=== PATIENT | female | born 1975 | race African-American/Black ===

== ENCOUNTER 2019-09-07 23:52 | Emergency (ER) | payer SELFPAY ==
[2019-09-08] MEDS ORDERED: HYDROCODONE/ACETAMINOPHEN 5-325 MG TABLET PO ONE (00:46)
[2019-09-08] MEDS ORDERED: SULFAMETHOXAZOLE/TRIMETHOPRIM 800-160 MG TABLET PO ONE ×2 (00:46→05:10)
--- NOTE | 2019-09-08 00:48 | ER Document Report ---
ED Medical Screen (RME) - General Chief Complaint: Boil Stated Complaint: REPORTS IN BOIL IN ARMPIT Notes: Patient is a 43-year-old -[place] female with no significant past medical history presents the emergency department the chief complaint of left "boil" in the armpit. She states she is never had anything like this before. States her family are in the medical field and advised she come for incision and drainage. She denies any drainage at home. She has been using warm compress without any improvement. She is tried an [id number] "drawing salve". None of which has given her any improvement or relief of the discomfort. She denies any fever, chills or night sweats. There is an obvious area of induration under the left armpit with a centralized questionable fluctuance. Will have patient seen in emergency department room for possible bedside ultrasound to confirm fluid collection versus isolated induration to determine need for I&D or not as our capabilities are limited in triage. I have treated and performed a rapid initial assessment of this patient. A comprehensive ED assessment and evaluation of the patient, analysis of test results and completion of medical decision making process will be conducted by additional ED providers. PHYSICAL EXAMINATION: GENERAL: Well-appearing, well-nourished and in no acute distress. A&Ox4. Answers questions appropriately. Physical Exam - Vital signs Vitals: Temp Pulse Resp BP Pulse Ox 99.1 F 91 20 150/97 H 100 09/08/19 00:12 09/08/19 00:12 09/08/19 00:12 09/08/19 00:12 09/08/19 00:12 Course - Vital Signs Vital signs: Temp Pulse Resp BP Pulse Ox 99.1 F 91 20 150/97 H 100 09/08/19 00:12 09/08/19 00:12 09/08/19 00:12 09/08/19 00:12 09/08/19 00:12
[2019-09-08] MEDS ORDERED: LIDOCAINE 1%/EPINEPHRINE INJ 20 ML VIAL INJ ONE (04:10)
[2019-09-08] MEDS ORDERED: OXYCODONE-ACETAMINOPHEN 5-325 MG TABLET PO ONE (04:10)
[2019-09-08] MEDS ORDERED: PROMETHAZINE HCL 25 MG TABLET PO ONE (04:10)
--- NOTE | 2019-09-08 04:16 | ER Document Report ---
ED Skin Rash/Insect Bite/Abscs - General Chief Complaint: Abscess Stated Complaint: REPORTS IN BOIL IN ARMPIT Time Seen by Provider: 09/08/19 04:05 Notes: Patient is a 43-year-old female that comes emergency department for chief complaint of a swollen, tender, red area in the left armpit. She states this started several days ago, she states she has been using warm compresses, she states that her she had her daughter used tweezers and pull out small hairs that seemed embedded in the skin, she states this did help and the swelling went slightly down but still has not resolved. She denies fever/chills, nausea/vomiting. She denies any daily medications. She denies history of the same. She denies any other complaints. - Related Data Allergies/Adverse Reactions: No Known Allergies Allergy (Unverified 09/08/19 04:24) Home Medications: albuterol inhaler Past Medical History - General Information source: Patient - Social History Smoking Status: Former Smoker Frequency of alcohol use: None Drug Abuse: None Lives with: Family Family History: Reviewed & Not Pertinent Patient has homicidal ideation: No - Medical History Medical History: Negative - Immunizations Immunizations up to date: Yes Hx Diphtheria, Pertussis, Tetanus Vaccination: Yes Review of Systems - Review of Systems Constitutional: No symptoms reported EENT: No symptoms reported Cardiovascular: No symptoms reported Respiratory: No symptoms reported Gastrointestinal: No symptoms reported Genitourinary: No symptoms reported Female Genitourinary: No symptoms reported Musculoskeletal: No symptoms reported Skin: See HPI Hematologic/Lymphatic: No symptoms reported Neurological/Psychological: No symptoms reported Physical Exam - Vital signs Vitals: Temp Pulse Resp BP Pulse Ox 99.1 F 91 20 150/97 H 100 09/08/19 00:12 09/08/19 00:12 09/08/19 00:12 09/08/19 00:12 09/08/19 00:12 - Notes Notes: GENERAL: Alert, interacts well. Patient appears mildly uncomfortable and is holding her left arm away from her body. HEAD: Normocephalic, atraumatic. EYES: Pupils equal, round, and reactive to light. Extraocular movements intact. ENT: Oral mucosa moist, tongue midline. Oropharynx unremarkable. Airway patent. NECK: Full range of motion. Supple. Trachea midline. No lymphadenopathy. LUNGS: Clear to auscultation bilaterally, no wheezes, rales, or rhonchi. No respiratory distress. Non-tender chest wall. HEART: Regular rate and rhythm. No murmur ABDOMEN: Soft, non-tender. Non-distended. EXTREMITIES: Moves all 4 extremities spontaneously. No edema, normal radial and dorsalis pedis pulses bilaterally. No cyanosis. BACK: no cervical, thoracic, lumbar midline tenderness. No saddle anesthesia, normal distal neurovascular exam. NEUROLOGICAL: Alert and oriented x3. Normal speech. Cranial nerves II through XII grossly intact. Strength 5/5 in all extremities. PSYCH: Normal affect, normal mood. SKIN: There is an obvious indurated abscess in the left mid axillary area, the center appears fluctuant, there is erythema over the area but no noted surrounding or spreading cellulitis. No nearby lymphadenopathy noted. Otherwise unremarkable skin exam. Course - Re-evaluation Re-evalutation: Rapid bedside ultrasound was done, confirms an abscess pocket in the left axillary region. The area was cleaned, drained, dressed. Discussed care, expectations, follow-up, return precautions. Patient states understanding and agreement with plan. - Vital Signs Vital signs: Temp Pulse Resp BP Pulse Ox 97.4 F 71 15 147/107 H 99 09/08/19 05:22 09/08/19 05:22 09/08/19 05:22 09/08/19 05:22 09/08/19 05:22 Procedures - Incision and Drainage Left axillary area Type: Single Anesthetic type: 1% Lidocaine w/epi mL's of anesthetic: 8 Blade size: 11 I&D procedure: Shurclens applied, Sterile dressing applied Incision Method: Incision made by scalpel Amount/type of drainage: About 4 cc of purulent drainage Discharge - Discharge Clinical Impression: Abscess Condition: Stable Disposition: HOME, SELF-CARE Additional Instructions: The abscess has been drained, keep the area clean, clean with soap and water, apply absorbent dressing over the area. Take the antibiotic as prescribed. Take the pain medication if needed, you may need an [id number] stool softener to avoid constipation with this. Follow-up with primary care. Return if you worsen including spreading redness, severe worsening pain or swelling, fever, or any other concerning symptoms. Prescriptions: Sulfamethoxazole/Trimethoprim [Bactrim Ds Tablet] 1 each PO BID #14 tablet Hydrocodone/Acetaminophen [[place] 5-325 mg Tablet] 1 - 2 tab PO Q6H PRN #8 tablet PRN Reason: Forms: Return to Work
[2019-09-08] MEDS ORDERED: HYDROCODONE/ACETAMINOPHEN 5-325 MG (6 TAB/ER DISP) PO PRN (05:10)
[2019-09-08 05:28] VITALS: BP 147/107
== END 2019-09-08 05:39 | disposition home or self-care (01) ==
LOC: ER 23:52
DX: L02.412 Cutaneous abscess of left axilla (principal)
CPT/HCPCS: 99283; 10060; J3490

== ENCOUNTER 2020-02-21 15:05 | Emergency (ER) | payer SELFPAY ==
[2020-02-21] MEDS ORDERED: NORMAL SALINE 1000 ML 1,000 ML IV ONE (16:03)
--- NOTE | 2020-02-21 16:08 | ER Document Report ---
ED Medical Screen (RME) - General Chief Complaint: Vomiting Stated Complaint: VOMITING Time Seen by Provider: 02/21/20 16:01 Mode of Arrival: Ambulatory Information source: Patient Notes: 44-year-old female presented to ED for complaint of nausea and vomiting x2 today. She does have left flank pain. She does have a history of gallstones and pancreatitis. She states she does not drink alcohol very often at all when she had pancreatitis it was due to the gallstones. She states she is not had a kidney stone before but she does have severe left flank pain that does come around to the abdomen. Will get blood urine and CT abdomen pelvis and she will be seen by another provider. We will give a shot of Toradol IM for her pain at this time and will give a Percocet with Zofran ODT as well. Recheck blood pressure at this time it is 205/125 on the right arm. Patient was not moving at all when this was rechecked. I have greeted and performed a rapid initial assessment of this patient. A comprehensive ED assessment and evaluation of the patient, analysis of test results and completion of medical decision making process will be conducted by an additional ED providers. - Related Data Allergies/Adverse Reactions: No Known Allergies Allergy (Unverified 09/08/19 04:24) Past Medical History - Immunizations Immunizations up to date: Yes Hx Diphtheria, Pertussis, Tetanus Vaccination: Yes Physical Exam - Vital signs Vitals: Temp Pulse Resp BP Pulse Ox 98.0 F 76 16 211/113 H 100 02/21/20 15:08 02/21/20 15:08 02/21/20 15:08 02/21/20 15:08 02/21/20 15:08 Course - Vital Signs Vital signs: Temp Pulse Resp BP Pulse Ox 98.0 F 76 16 211/113 H 100 02/21/20 15:08 02/21/20 15:08 02/21/20 15:08 02/21/20 15:08 02/21/20 15:08
[2020-02-21 16:50] LABS: APPEARANCE,URINE CLEAR; BILIRUBIN,URINE NEGATIVE (NEGATIVE); GLUCOSE, URINE NEGATIVE (NEGATIVE); KETONES,URINE TRACE mg/dL (NEGATIVE); LEUKOCYTE ESTERASE,URINE NEGATIVE (NEGATIVE); NITRITE,URINE NEGATIVE (NEGATIVE); PROTEIN,URINE 30 mg/dL (NEGATIVE); URINE SPECIFIC GRAVITY 1.025
[2020-02-21 16:51] LABS: COLOR,URINE DARK YELLOW
[2020-02-21] MEDS ORDERED: OXYCODONE-ACETAMINOPHEN 5-325 MG TABLET PO ONE (17:46)
--- NOTE | 2020-02-21 17:54 | RADIOLOGY REPORT (SQ) ---
EXAM DESCRIPTION: CT ABD/PELVIS NO ORAL OR IV IMAGES COMPLETED DATE/TIME: 02/21/2020 5:37 pm REASON FOR STUDY: Left flank pain COMPARISON: None. TECHNIQUE: CT scan of the abdomen and pelvis performed without intravenous or oral contrast. Images reviewed with lung, soft tissue, and bone windows. Reconstructed coronal and sagittal MPR images revi ewed. All images stored on PACS. All CT scanners at this facility use dose modulation, iterative reconstruction, and/or weight based d osing when appropriate to reduce radiation dose to as low as reasonably achievable (ALARA). [facility]: Dose Right [facility]: CareDose [facility]: Dose Right [facility]: Teradose 4D [facility]: Smart FreshT RADIATION DOSE: CT Rad equipment meets quality standard of care and radiation dose reduction techniq ues were employed. CTDIvol: 12.3 mGy. DLP: 602 mGy-cm.mGy. LIMITATIONS: None. FINDINGS: LOWER CHEST: No significant findings. No nodules or infiltrates. NON-CONTRASTED LIVER, SPLEEN, ADRENALS: Evaluation limited by lack of IV contrast. No identified sign ificant masses. PANCREAS: No masses. No peripancreatic inflammatory changes. GALLBLADDER: There are some tiny gallstones. RIGHT KIDNEY AND URETER: No suspicious masses. Assessment limited by lack of IV contrast. No signif icant calcifications. No hydronephrosis or hydroureter. LEFT KIDNEY AND URETER: No suspicious masses. Assessment limited by lack of IV contrast. No signifi cant calcifications. No hydronephrosis or hydroureter. AORTA AND RETROPERITONEUM: No aneurysm. No retroperitoneal masses or adenopathy. BOWEL AND PERITONEAL CAVITY: No obvious masses or inflammatory changes. No free fluid. APPENDIX: Normal. PELVIS, BLADDER, AND ABDOMINAL WALL:No abnormal masses. No free fluid. Bladder normal. BONES: No significant findings. OTHER: No other significant finding. IMPRESSION: NO SIGNIFICANT OR ACUTE PROCESS IN THE ABDOMEN OR PELVIS. COMMENT: Quality ID # [id number]: Final reports with documentation of one or more dose reduction techniques (e.g., Automated exposure control, adjustment of the mA and/or kV according to patient size, use of iterative reconstruction technique) TECHNICAL DOCUMENTATION: JOB ID: [id number] 2010 [employer]- All Rights Reserved Reading location - IP/workstation name: [email or web address]
[2020-02-21] MEDS ORDERED: FENTANYL CITRATE INJ/PF 100 MCG/2 ML AMPUL IV ONE (18:55)
[2020-02-21] MEDS ORDERED: PROMETHAZINE HCL INJ 25 MG/1 ML VIAL IV ONE (18:56)
[2020-02-21] MEDS ORDERED: ENALAPRILAT DIHYDRATE INJ/PF 2.5 MG/2 ML SDV IV ONE (18:56)
[2020-02-21] MEDS ORDERED: LABETALOL HCL INJ 20 MG/4 ML DISP.SYRIN IV ONE (18:57)
--- NOTE | 2020-02-21 18:57 | ER Document Report ---
ED GI/ - General Chief Complaint: Vomiting Stated Complaint: VOMITING Time Seen by Provider: 02/21/20 16:01 Mode of Arrival: Ambulatory Information source: Patient Notes: ED Medical Screen (Julianne Zeng) - General Chief Complaint: Vomiting Stated Complaint: VOMITING Time Seen by Provider: 02/21/20 16:01 Mode of Arrival: Ambulatory Information source: Patient Notes: 44-year-old female presented to ED for complaint of nausea and vomiting x2 today. She does have left flank pain. She does have a history of gallstones and pancreatitis. She states she does not drink alcohol very often at all when she had pancreatitis it was due to the gallstones. She states she is not had a kidney stone before but she does have severe left flank pain that does come around to the abdomen. Will get blood urine and CT abdomen pelvis and she will be seen by another provider. We will give a shot of Toradol IM for her pain at this time and will give a Percocet with Zofran ODT as well. Recheck blood pressure at this time it is 205/125 on the right arm. Patient was not moving at all when this was rechecked. MY NOTES 44-year-old black female arrives with chief complaint of having nausea and vomiting x2 today and 2-3 times yesterday. She complains of left upper quadrant abdominal pain with associated left CVA pain radiating to her left SI. Patient reports in 2002 after the of her daughter she was diagnosed with some pancreatitis and had some jaundice. She admits to one bout of diarrhea. This was on the prior day. She denies any history of PUD or gastritis or family history of any stomach ulcers. Patient denies any trauma or physical abuse at home. No one else in the family is sick. 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 TRAVEL OUTSIDE OF THE [place] IN LAST 30 DAYS: No - Related Data Allergies/Adverse Reactions: No Known Allergies Allergy (Unverified 09/08/19 04:24) Past Medical History - General Information source: Patient - Social History Smoking Status: Current Every Day Smoker Cigarette use (# per day): Yes Chew tobacco use (# tins/day): No Smoking Education Provided: Yes Frequency of alcohol use: None Lives with: Family Family History: Reviewed & Not Pertinent Patient has suicidal ideation: No Patient has homicidal ideation: No - Immunizations Immunizations up to date: Yes Hx Diphtheria, Pertussis, Tetanus Vaccination: Yes Review of Systems - Review of Systems Constitutional: No symptoms reported EENT: No symptoms reported Cardiovascular: No symptoms reported Respiratory: No symptoms reported Gastrointestinal: See HPI, Abdominal pain, Diarrhea, Nausea, Vomiting Genitourinary: No symptoms reported Female Genitourinary: No symptoms reported Musculoskeletal: No symptoms reported Skin: No symptoms reported Hematologic/Lymphatic: No symptoms reported Neurological/Psychological: No symptoms reported Physical Exam - Vital signs Vitals: Temp Pulse Resp BP Pulse Ox 98.0 F 76 16 211/113 H 100 02/21/20 15:08 02/21/20 15:08 02/21/20 15:08 02/21/20 15:08 02/21/20 15:08 Interpretation: Hypertensive - General General appearance: Appears well, Alert - HEENT Head: Normocephalic, Atraumatic Eyes: Normal Pupils: PERRL Sinus: Normal Nasal: Normal Mouth/Lips: Normal Mucous membranes: Normal Pharynx: Normal Neck: Normal - Respiratory Respiratory status: No respiratory distress Chest status: Nontender Breath sounds: Normal Chest palpation: Normal - Cardiovascular Rhythm: Regular Heart sounds: Normal auscultation Murmur: No - Abdominal Inspection: Obese Distension: No distension Bowel sounds: Normal Tenderness: Tender - LUQ on p/p Organomegaly: No organomegaly - Rectal Hemorrhoids: Other - Deferred - Genitourinary Bimanuel exam: Other - Deferred - Back Back: Normal, Nontender - Extremities General upper extremity: Normal inspection, Nontender, Normal color, Normal ROM, Normal temperature General lower extremity: Normal inspection, Nontender, Normal color, Normal ROM, Normal temperature, Normal weight bearing. No: Cora's sign - Neurological Neuro grossly intact: Yes Cognition: Normal Orientation: AAOx4 Tok Coma Scale Eye Opening: Spontaneous Tok Coma Scale Verbal: Oriented Tok Coma Scale Motor: Obeys Commands Tok Coma Scale Total: 15 Speech: Normal Motor strength normal: LUE, RUE, LLE, RLE Sensory: Normal - Psychological Associated symptoms: Normal affect, Normal mood - Skin Skin Temperature: Warm Skin Moisture: Dry Skin Color: Normal Course - Vital Signs Vital signs: Temp Pulse Resp BP Pulse Ox 98.0 F 76 17 171/114 H 100 02/21/20 15:08 02/21/20 15:08 02/21/20 19:53 02/21/20 19:53 02/21/20 19:53 - Laboratory Results Result Diagrams: 02/21/20 19:26 02/21/20 19:26 Laboratory Results Interpreted: 02/21/20 02/21/20 02/21/20 16:27 19:26 19:26 RDW 14.7 H Potassium 3.4 L Total Bilirubin 4.0 H Direct Bilirubin 2.0 H AST 422 H ALT 638 H Alkaline Phosphatase 281 H Total Protein 9.1 H Urine Protein 30 H Urine Ketones TRACE H Urine Blood SMALL H Urine Urobilinogen 4.0 H Critical Laboratory Results Reviewed: Yes Attending or Supervising Physician who Reviewed Labs: [facility] Radiology Results Radiology Results Interpreted: 02/21/20 19:21 Dr. Dennison read the CT Critical Radiology Results Reviewed: No Critical Results Attending or Supervising Physician who Reviewed Radiology: [facility] EKG Interpretation by Sc EKG shows normal: Sinus rhythm Rate: Normal Rhythm: NSR - 56 bpm sinus rhythm with no ST elevation and no ST depression and no T wave elevation and no T wave depression Critical Care Note - Critical Care Note Comments: I informed patient of her negative CT findings and I suspect her symptoms are from norovirus. Discharge - Discharge Clinical Impression: Gastroenteritis due to norovirus, Elevated liver enzymes, Hypokalemia, Hepatitis Hypertension Qualifiers: Hypertension type: unspecified Qualified Code(s): I10 - Essential (primary) hypertension Condition: Stable Disposition: HOME, SELF-CARE Instructions: Antinausea Medication ([facility]) Additional Instructions: Follow-up with personal doctor this week; return to ER as needed; take medicines as directed; encourage fluids; off work as directed; make sure you write down your blood pressure taken on a daily basis on a calendar or other paper that you can present to your personal doctor on a monthly basis. Avoid salt if possible and use Mrs. Flor or other salt substitutes if possible. May use Lite salt a potassium substitute salt. Also your potassium was a little low today make sure you take Lite salt potassium or potassium tablets. Also your liver enzymes are elevated suggesting hepatitis. Prescriptions: Potassium Chloride [K-Tab ER] 20 meq PO DAILY #30 tablet.er Lisinopril/Hydrochlorothiazide [Lisinopril-Hctz 20-25 mg Tab] 1 each PO DAILY 30 Days #30 tablet Forms: Return to Work
--- NOTE | 2020-02-21 19:02 | EKG REPORT ---
SEVERITY:- NORMAL ECG - SINUS RHYTHM : Confirmed by: Roque Franklin MD 21-Feb-2020 19:01:21
[2020-02-21] MEDS ORDERED: HYDROCODONE/ACETAMINOPHEN 5-325 MG (6 TAB/ER DISP) PO PRN (19:04)
[2020-02-21] MEDS ORDERED: ONDANSETRON ODT 4 MG TAB (6 TAB/ER DISP) PO PRN (19:15)
[2020-02-21 19:49] LABS: ABSOLUTE EOSINOPHILS # (AUTO) 0.2 10^3/uL (0.0-0.6); ABSOLUTE LYMPHOCYTES (AUTO) 1.6 10^3/uL (0.5-4.7); ABSOLUTE MONOCYTES (AUTO) 0.4 10^3/uL (0.1-1.4); ABSOLUTE NEUT (AUTO) 2.8 10^3/uL (1.7-8.2); BASOPHILS % (AUTO) 0.5 % (0-2); HEMATOCRIT 40.3 % (36.0-47.0); HEMOGLOBIN 13.5 g/dL (12.0-15.5); LYMPHOCYTES % (AUTO) 32.2 % (13-45); MEAN CORPUSCULAR HEMOGLOBIN 29.1 pg (27.0-33.4); MEAN CORPUSCULAR HGB CONC 33.6 g/dL (32.0-36.0); MEAN CORPUSCULAR VOLUME 87 fl (80-97); MONOCYTES % (AUTO) 7.2 % (3-13); PLATELET COUNT 192 10^3/uL (150-450); RED BLOOD COUNT 4.65 10^6/uL (3.72-5.28); RED CELL DISTRIBUTION WIDTH 14.7 % (11.5-14.0); SEGMENTED NEUTROPHILS % (AUTO) 56.1 % (42-78); TOTAL CELLS COUNTED % (AUTO) 100 %
[2020-02-21] MEDS ORDERED: HYDROCHLOROTHIAZIDE 25 MG TABLET PO ONE (20:08)
[2020-02-21 20:12] LABS: ALBUMIN 4.4 g/dL (3.5-5.0); ALKALINE PHOSPHATASE 281 U/L (38-126); ANION GAP 7 (5-19); ASPARTATE AMINO TRANSFERASE 422 U/L (14-36); BLOOD UREA NITROGEN 10 mg/dL (7-20); CALCIUM 8.9 mg/dL (8.4-10.2); CARBON DIOXIDE 26 mmol/L (22-30); CHLORIDE 105 mmol/L (98-107); GLUCOSE 106 mg/dL (75-110); POTASSIUM 3.4 mmol/L (3.6-5.0); TOTAL PROTEIN 9.1 g/dL (6.3-8.2)
[2020-02-21 22:24] VITALS: BP 162/113
[2020-02-24 14:36] LABS: HEPATITS B SURFACE ANTIGEN Negative (Negative)
[2020-02-24 17:58] LABS: HEPATITIS C VIRUS ANTIBODY <0.1 s/co ratio (0.0-0.9)
== END 2020-02-21 22:20 | disposition home or self-care (01) ==
LOC: ER 15:05
DX: A08.11 Acute gastroenteropathy due to Norwalk agent (principal); R74.8 Abnormal levels of other serum enzymes; E87.6 Hypokalemia; K75.9 Inflammatory liver disease, unspecified; R10.9 Unspecified abdominal pain; R11.2 Nausea with vomiting, unspecified; F17.210 Nicotine dependence, cigarettes, uncomplicated
CPT/HCPCS: 93005; 99285; 96361; 96374; 96375; 36415; 87086; 83690; 85025; 81025; 80053; 81001; 80074; 74176; 93010; J3490 ×2; J3010; J2550; J7030

== ENCOUNTER 2020-03-08 00:33 | Emergency (ER) | payer SELFPAY ==
[2020-03-08] MEDS ORDERED: KETOROLAC TROMETHAMINE INJ/PF 30 MG/1 ML SDV IV ONE (00:48)
[2020-03-08 01:15] LABS: ABSOLUTE BASOPHILS # (AUTO) 0.1 10^3/uL (0.0-0.2); ABSOLUTE EOSINOPHILS # (AUTO) 0.3 10^3/uL (0.0-0.6); ABSOLUTE LYMPHOCYTES (AUTO) 2.3 10^3/uL (0.5-4.7); ABSOLUTE MONOCYTES (AUTO) 0.4 10^3/uL (0.1-1.4); ABSOLUTE NEUT (AUTO) 2.8 10^3/uL (1.7-8.2); BASOPHILS % (AUTO) 0.9 % (0-2); EOSINOPHILS % (AUTO) 4.3 % (0-6); HEMOGLOBIN 13.2 g/dL (12.0-15.5); LYMPHOCYTES % (AUTO) 39.1 % (13-45); MEAN CORPUSCULAR HEMOGLOBIN 28.4 pg (27.0-33.4); MEAN CORPUSCULAR VOLUME 86 fl (80-97); MONOCYTES % (AUTO) 7.5 % (3-13); PLATELET COUNT 208 10^3/uL (150-450); RED BLOOD COUNT 4.65 10^6/uL (3.72-5.28); RED CELL DISTRIBUTION WIDTH 14.8 % (11.5-14.0); SEGMENTED NEUTROPHILS % (AUTO) 48.2 % (42-78); TOTAL CELLS COUNTED % (AUTO) 100 %; WHITE BLOOD COUNT 5.9 10^3/uL (4.0-10.5)
[2020-03-08 01:32] LABS: ALKALINE PHOSPHATASE 101 U/L (38-126); ANION GAP 5 (5-19); ASPARTATE AMINO TRANSFERASE 93 U/L (14-36); BILIRUBIN,DIRECT 0.3 mg/dL (0.0-0.4); BLOOD UREA NITROGEN 16 mg/dL (7-20); CALCIUM 9.4 mg/dL (8.4-10.2); CARBON DIOXIDE 29 mmol/L (22-30); CHLORIDE 107 mmol/L (98-107); GLUCOSE 94 mg/dL (75-110); POTASSIUM 4.3 mmol/L (3.6-5.0); TOTAL PROTEIN 7.9 g/dL (6.3-8.2)
[2020-03-08] MEDS ORDERED: NORMAL SALINE 1000 ML 1,000 ML IV ONE (06:17)
[2020-03-08] MEDS ORDERED: LISINOPRIL 10 MG TABLET PO ONE (06:18)
[2020-03-08] MEDS ORDERED: HYDROCHLOROTHIAZIDE 25 MG TABLET PO ONE (06:19)
--- NOTE | 2020-03-08 06:22 | ER Document Report ---
ED GI/ - General Chief Complaint: Flank Pain Stated Complaint: FLANK PAIN Time Seen by Provider: 03/08/20 05:50 Primary Care Provider: [facility] [Provider Group] - Follow up as needed [facility] [Provider Group] - Follow up as needed [facility] [Provider Group] - Follow up as needed [facility] [Provider Group] - Follow up as needed [facility] [Provider Group] - Follow up as needed [facility] [Provider Group] - Follow up as needed Mode of Arrival: Ambulatory Information source: Patient Notes: 44-year-old female presented to ED for complaint of left-sided abdominal pain that radiates to the back x2 hours before coming to the emergency room. She states she was nauseated but is actually feeling better now. She states she did have a history of gallstones. She states she was seen on [facility] and was diagnosed with high blood pressure and gastroenteritis. She states she was prescribed lisinopril hydrochlorothiazide and she took it for couple days and then forgot about it and has not taken it since. Her blood pressure is 170/109. Constitutional: Negative for fever. HENT: Negative for sore throat. Eyes: Negative for visual changes. Cardiovascular: Negative for chest pain. Respiratory: Negative for shortness of breath. Gastrointestinal: Left-sided abdominal pain sharp pains earlier pain is decreased now to a 2/5 Genitourinary: Negative for dysuria. Musculoskeletal: Patient reported back pain in triage but back pain at this time Skin: Negative for rash. Neurological: Negative for headaches, weakness or numbness. 10 point ROS negative except as marked above and in HPI. VITAL SIGNS: Within normal limits. GENERAL: No acute distress, non-toxic appearance. HEAD: Normal with no signs of head trauma. EYES: PERRLA, EOMI, conjunctiva normal, no discharge. EARS: Hearing grossly intact. NOSE: Normal. THROAT: Oropharynx is normal. NECK: Normal range of motion, no tenderness, supple, no lymphadenopathy, No adenopathy, no JVD. CHEST: Clear breath sounds bilaterally. No wheezes, rales, or rhonchi. CARDIAC: Regular rate and rhythm. S1 and S2, without murmurs, gallops, or rubs. VASCULAR: No Edema. Peripheral pulses normal and equal in all extremities. ABDOMEN: Normal and soft with generalized tenderness, no masses or pulsatile masses. GASTROINTESTINAL: Hyperactive bowel sounds normal GENITOURINARY: Normal, No tenderness LYMPATHTIC: No lymphadenopathy noted. MUSCULOSKELETAL: Good range of motion of all major joints. Extremities without clubbing, cyanosis or edema. NEUROLOGICAL: Alert and oriented x 3. No focal sensory or strength deficits. Speech normal. Follows commands appropriately. PSYCHIATRIC: Normal Affect, judgement and mood. SKIN: Normal appearance with no rashes or lesions. TRAVEL OUTSIDE OF THE [place] IN LAST 30 DAYS: No - HPI Patient complains to provider of: Abdominal pain, Vomiting - Earlier no vomiting at this time Onset: This evening Timing/Duration: Better Quality of pain: Sharp Severity at maximum: Moderate Severity in ED: Mild Pain Level: 2 Location: LUQ, LLQ, Left flank - Left flank earlier left abdomen now Vaginal bleeding (Compared to normal period): None Associated symptoms: Nausea - None at this time, Vomiting - None at this time Exacerbated by: Movement Relieved by: Denies Similar symptoms previously: Yes Recently seen / treated by doctor: Yes - Related Data Allergies/Adverse Reactions: No Known Allergies Allergy (Unverified 09/08/19 04:24) Past Medical History - General Information source: Patient - Social History Smoking Status: Current Some Day Smoker Chew tobacco use (# tins/day): No Frequency of alcohol use: Occasional Drug Abuse: Marijuana Lives with: Family Family History: Reviewed & Not Pertinent Patient has suicidal ideation: No Patient has homicidal ideation: No - Past Medical History Cardiac Medical History: Reports: Hx Hypertension Pulmonary Medical History: Reports: Hx Asthma EENT Medical History: Reports: None Neurological Medical History: Reports: None Endocrine Medical History: Reports: None Renal/ Medical History: Reports: Hx Kidney Stones Malignancy Medical History: Reports: None GI Medical History: Reports: Hx Gastritis, Other - gallstones Musculoskeletal Medical History: Reports None Skin Medical History: Reports None Traumatic Medical History: Reports: None Infectious Medical History: Reports: None Surgical Hx: Negative Past Surgical History: Reports: None - Immunizations Immunizations up to date: No Hx Diphtheria, Pertussis, Tetanus Vaccination: No Physical Exam - Vital signs Vitals: Temp Pulse Resp BP Pulse Ox 97.6 F 77 18 184/119 H 100 03/08/20 00:38 03/08/20 00:38 03/08/20 00:38 03/08/20 00:38 03/08/20 00:38 Course - Re-evaluation Re-evalutation: 03/08/20 07:59 Patient showed a picture of her x-ray. She was treated with a bottle of mag citrate and given instructions on constipation. Patient states she felt much better but she still had some intermittent sharp pains. She states she will go home and follow treatments and that I have set up for her. She so stated that she would make sure that she took her blood pressure medicine as prescribed. I have given her multiple doctor offices to find someone to follow-up with. - Vital Signs Vital signs: Temp Pulse Resp BP Pulse Ox 97.9 F 74 16 152/94 H 100 03/08/20 07:35 03/08/20 07:35 03/08/20 07:35 03/08/20 07:35 03/08/20 07:35 - Laboratory Results Result Diagrams: 03/08/20 01:03 03/08/20 01:03 Laboratory Results Interpreted: 03/08/20 03/08/20 01:03 01:03 RDW 14.8 H AST 93 H ALT 56 H Critical Laboratory Results Reviewed: No Critical Results - Radiology Results Critical Radiology Results Reviewed: No Critical Results Discharge - Discharge Clinical Impression: Constipation Qualifiers: Constipation type: unspecified constipation type Qualified Code(s): K59.00 - Constipation, unspecified HTN (hypertension) Qualifiers: Hypertension type: unspecified Qualified Code(s): I10 - Essential (primary) hypertension Condition: Stable Disposition: HOME, SELF-CARE Additional Instructions: ABDOMINAL PAIN: There are many causes of abdominal pain. Pain can mean a serious problem requiring surgery (such as appendicitis). It can also be an innocent problem that goes away on its own (such as a viral infection). Often, time must pass to determine the cause of pain. The physician does not feel that hospitalization is necessary, at present. Things may change within the next 24 hours. Call the doctor or come back for re- examination if any problems occur, such as: (1) Pain that becomes more severe, steady, or becomes concentrated in one specific area. Also, pain that is more severe with movement or coughing. (2) Vomiting that persists or becomes more frequent. (3) Blood in the vomitus, urine, or bowel movements. Blood in the stool may have a tarry or black appearance. (4) Shaking chills or fever greater than 100 degrees F. (5) The abdomen becomes more distended or swollen. (6) Bowel movements cease. (7) Failure to improve as expected. You were given a dose of your lisinopril hydrochlorothiazide tonight. You state you has not been taking it for the last several days. Your blood pressure was very high at 170/109. It is very important that you take your medicine as prescribed.. Your blood pressure can cause many problems if you do not take it as prescribed daily on a regular basis. Please take it before going to work each morning so you will not forget it. NORMAL EXAM AND WORKUP: At this time, your examination and workup show no significant abnormality. No significant abnormal physical findings are noted. All laboratory, EKG, and imaging (x-ray, CT scans, ultrasound) studies that were ordered show no significant abnormality. Although your examination and all studies that were ordered showed no significant abnormal finding, there are no examinations and no studies that are 100% accurate. There is always the possibility that some abnormality could exist and not be detected with physical examination or within the limits and capabilities of laboratory and other studies. You should return or follow up as you were instructed on your visit today for further evaluation if your symptoms do not resolve. CONSTIPATION: Constipation is a common problem. It is especially likely as you get older. Constipation is a common cause of abdominal pain, but sometimes causes no symptoms at all. Causes of constipation include certain medications, dehydration, diets, inactivity, and low-fiber intake. Rarely, it can be a symptom of underlying disease. The physician has evaluated you for this. Avoid constipation by eating a diet high in fiber, fruits, and vegetables. Drink plenty of liquids. Get regular exercise. If possible, avoid constipating medicines like narcotic pain medication. Some vitamin tablets can cause constipation. Stool softeners may be needed for difficult cases. An excellent stool softener is Konsyl which is available at [employer], and [employer] [facility] store. Just add a teaspoon to a glass of pineapple or orange juice daily or twice a day if needed. Laxatives are useful for occasional constipation. You should use them only when necessary. Too-frequent use can make your bowels dependent on them. Some over the counter laxatives available without prescription are: Milk of Magnesia, 1-2 tablespoons twice a day Dulcolax, 5 mg pill or 10 mg suppository. Citrate of Magnesia, 4-5 ounces a day for a day or two For acute constipation, Fleet's Enemas and Dulcolax suppositories are helpful. Chronic, half-way use of laxatives or enemas is not a good idea. Your bowel may become dependant on them. You do not need to have a bowel movement every day. Many people do fine with a bowel movement every three or four days. You should call your doctor or return for re-evaluation if you pass blood in the stool, or if you develop fever or increasing abdominal pain. BULK LAXATIVES: Bulk laxatives make the stool softer and bulkier. They're useful for preventing constipation. You can choose between psyllium, methylcellulose, and polycarbophil. They are available without a prescription. Psyllium brand names include Konsyl, Metamucil, Perdiem, Effer-Syllium and Hydrocil. It's available as powder, flavored drink powder, or chewable. The usual dose of psyllium powder is one heaping teaspoon in water each morning, increasing to twice a day if needed. Ward juice can disguise the slightly grainy texture. Methylcellulose is marketed as Citrucel and other brands. The average dose is two grams in a cup of water one to three times a day. Polycarbophil is marketed as Fiber-Con. Take two tablets with a cup of water one to three times a day. LAXATIVE: A laxative agent has been prescribed for your condition. This should result in passage of stool within 12 hours. Some mild intestinal cramping is common as the hard stool begins to move. You may have loose or runny stools for a short time. Contact your doctor if there is severe cramping, vomiting, or passage of blood. Return for further care if this medicine fails to improve your condi tion. FOLLOW-UP CARE: If you have been referred to a physician for follow-up care, call the [facility] office for an appointment as you were instructed or within the next two days. If you experience worsening or a significant change in your symptoms, notify the physician immediately or return to the Emergency Department at any time for re-evaluation. Forms: Elevated Blood Pressure, Smoking Cessation Education, Return to Work Referrals: [facility] [Provider Group] - Follow up as needed [facility] [Provider Group] - Follow up as needed [facility] [Provider Group] - Follow up as needed [facility] [Provider Group] - Follow up as needed [facility] [Provider Group] - Follow up as needed [facility] [Provider Group] - Follow up as needed
[2020-03-08 07:01] LABS: APPEARANCE,URINE SLIGHTLY-CLOUDY; BILIRUBIN,URINE NEGATIVE (NEGATIVE); COLOR,URINE YELLOW; GLUCOSE, URINE NEGATIVE (NEGATIVE); KETONES,URINE NEGATIVE (NEGATIVE); LEUKOCYTE ESTERASE,URINE NEGATIVE (NEGATIVE); NITRITE,URINE NEGATIVE (NEGATIVE); PROTEIN,URINE NEGATIVE (NEGATIVE); URINE SPECIFIC GRAVITY 1.018; UROBILINOGEN,URINE NEGATIVE mg/dL (<2.0)
[2020-03-08] MEDS ORDERED: MAGNESIUM CITRATE 296 ML BOTTLE PO ONE (07:30)
--- NOTE | 2020-03-08 07:33 | RADIOLOGY REPORT (SQ) ---
CLINICAL HISTORY: left abdominal pain COMPARISON: None. 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 There are no abnormal radiopaque foreign bodies or abnormal calcifications. Osseous structures are grossly unremarkable. IMPRESSION: Extensive constipation.
[2020-03-08 07:35] VITALS: BP 152/94
== END 2020-03-08 08:09 | disposition home or self-care (01) ==
LOC: ER 00:33
DX: K59.00 Constipation, unspecified (principal); I10 Essential (primary) hypertension; R10.9 Unspecified abdominal pain; R11.0 Nausea; F17.200 Nicotine dependence, unspecified, uncomplicated; Z87.442 Personal history of urinary calculi
CPT/HCPCS: 99284; 96374; 36415; 83690; 85025; 80053; 81001; 74018; J3490; J1885